=== PATIENT | male | born 1945 | race Caucasian/White ===

== ENCOUNTER 2020-02-10 17:06 | Outpatient (CLI) | payer MEDICARE, SELFPAY ==
--- NOTE | ~2020-02-10 | XR_ITS ---
EXAMINATION: XR hip BI wo pelvis DATE: 02/10/2020 17:43 INDICATION: Bilateral hip pain, left greater than right TECHNIQUE: Anteroposterior , frog leg and cross-table lateral views of the left and right hips were o btained. COMPARISON: 08/09/2018 FINDINGS: Normal alignment at both hips. No fracture or suspected avascular necrosis. Mild bilateral hip osteoa rthritis. A few phleboliths in the pelvis. IMPRESSION: 1. Mild bilateral hip osteoarthritis. No acute osseous abnormality. Reviewed, dictated and finalized at location A.
== END 2020-02-10 17:07 | disposition home or self-care (01) ==
PROVIDERS: PCP Internal Medicine; Visit Provider Internal Medicine
DX: M16.0 Bilateral primary osteoarthritis of hip (principal)
CPT/HCPCS: 73521

== ENCOUNTER 2020-08-21 10:51 | Emergency (ER) | payer MEDICARE, SELFPAY ==
[2020-08-21 11:07] VITALS: BP 124/82; PULSE 90; RESP 20; TEMP 37.9; O2SAT 100
--- NOTE | 2020-08-21 11:11 | ED.URI ---
HPI - URI/Sore Throat General Chief Complaint: Upper Respiratory Infection Stated Complaint: upper respiratory infection Time Seen by Provider: 08/21/20 11:10 Source: patient and RN notes reviewed Mode of arrival: ambulatory Limitations: no limitations History of Present Illness HPI Narrative: 74-year-old male presents with concern for 3-day history of sinus congestion, cough, body aches, postnasal drainage. Reports a coworker tested positive for Covid, he was exposed to the coworker approximately 12 days ago. He reports he was tested this morning at a community testing site, he does not know the results. He denies shortness of breath, loss of sense of taste or smell. Reports he has been taking Coricidin and Tylenol. MD elicited complaint: cough and nasal congestion Related Data Home Medications Medication Instructions Recorded Confirmed aspirin 81 mg tablet,delayed 81 mg PO DAILY 07/28/19 08/21/20 release multivitamin 1 tablet PO DAILY 07/28/19 08/13/20 Allergies Allergy/AdvReac Type Severity Reaction Status Date / Time Iodinated Contrast Media Allergy Mild unknown Verified 08/12/20 14:49 Review of Systems Review of Systems: Narrative: CONSTITUTIONAL: Denies malaise, chills, sweats, or fever. EYES: Denies visual changes, redness, or discharge. ENT: Reports rhinorrhea, congestion, postnasal drainage. Denies sinus pain, otalgia and sore throat. CARDIOVASCULAR: Denies chest pain, palpitations, or edema. RESPIRATORY: Reports cough. Denies dyspnea. GASTROINTESTINAL: Denies abdominal pain, nausea, vomiting, diarrhea SKIN: Denies rash or itching. MUSCULOSKELETAL: Reports myalgia. NEUROLOGIC: Denies headache. All systems reviewed & are unremarkable except as noted in HPI and below PMFSH Family History Family History Father Acute myocardial infarction, Onset Age: 62 Patient's father is Mother Patient's mother is Social History Social History Smoking status: Never smoker Second hand tobacco smoke exposure: No Smoking end date: 08/26/96 Alcohol intake: current Gender identity (if verbalized by the patient): Male Comments At time of signature, agree with nursing past medical, surgical, social and family history. There is no relevant family history pertinent to the presenting complaint Exam Narrative: Exam Narrative: GENERAL: Well-appearing, well-nourished, and in no acute distress. HEAD: Normocephalic EYES: PERRLA, conjunctivae clear ENT: Nares clear, turbinates erythematous, clear discharge. Mucous membranes moist. TM pearly nunez with dull light reflex bilaterally; no tragal tenderness. Oropharynx mildly erythematous without lesions. Tonsils not enlarged and without exudate, no drooling, no hoarseness, no trismus, uvula midline. NECK: Supple. No lymphadenopathy CHEST: Clear to auscultation, breath sounds equal. No wheezing, rhonchi, rales, or stridor. No respiratory distress, speaks in full sentences. HEART: Regular rate and rhythm. No murmur heard. SKIN: Warm, dry, no rash. NEURO: Alert and oriented x3. PSYCH: Normal mood and affect Course Course Emergency Course: Patient is aware of diagnosis, understands and agrees to treatment plan. Anticipatory guidance given. Patient agrees to follow-up as directed and is aware of reasons to seek care at the emergency department. Portions of this record may have been created with voice recognition software Vital Signs Vital signs: Vital Signs Temperature 100.2 F H 08/21/20 11:07 Pulse Rate 90 08/21/20 11:07 Respiratory Rate 08/21/20 11:07 Blood Pressure 124/82 08/21/20 11:07 Pulse Oximetry 100 08/21/20 11:07 Temperature 100.2 F H 08/21/20 11:07 Pulse Rate 90 08/21/20 11:07 Respiratory Rate 20 08/21/20 11:07 Blood Pressure 124/82 08/21/20 11:07 Pulse Oximetry 100
== END 2020-08-21 11:28 | disposition home or self-care (01) ==
PROVIDERS: Emergency Provider Nurse Practitioner; PCP Internal Medicine
DX: B34.9 Viral infection, unspecified (principal); Z79.82 Long term (current) use of aspirin
CPT/HCPCS: 99213; G0463

== ENCOUNTER 2022-06-07 14:37 | Outpatient (CLI) | payer MEDICARE, SELFPAY ==
--- NOTE | ~2022-06-07 | MR_ITS ---
EXAMINATION: MR lumbar spine wo con DATE: 06/07/2022 15:25 INDICATION: Low back pain. TECHNIQUE: Magnetic resonance imaging (MRI) of the lumbar spine was performed without intravenous con trast. Sequences included sagittal T2-weighted FSE, sagittal T2-weighted FS FSE, sagittal T1-weighted FSE, and axial T2-weighted FSE. COMPARISON: None FINDINGS: There is 6 degrees levocurvature of lumbar spine. There is 3 mm retrolisthesis of L4 on L5 and L5 on S1. There is mildly decreased disc height at L2-L3 and L3-L4 and severely decreased disc he ight at L4-L5 and L5-S1. The distal spinal cord signal intensity is normal. The conus medullaris is a t L1. The following disc levels are specifically discussed: L1-L2: The disc does not extend beyond the endplate margin. There is severe right and moderate left f acet joint osteoarthritis. There is mild bilateral neural foraminal stenosis. There is no central can al stenosis. L2-L3: The disc is bulging. There is severe bilateral facet joint osteoarthritis. There is mild bilat eral neural foraminal stenosis. There is mild central canal stenosis. L3-L4: The disc is bulging and has an annular fissure. There is moderate bilateral facet joint osteoa rthritis. There is mild bilateral neural foraminal stenosis. There is mild central canal stenosis. L4-L5: The disc is bulging and has an annular fissure. There is severe right and moderate left facet joint osteoarthritis. There is mild bilateral neural foraminal stenosis. There is mild central canal stenosis. L5-S1: The disc is bulging with superimposed central extrusion. There is moderate bilateral facet jeffrey nt osteoarthritis. There is mild bilateral neural foraminal stenosis. There is mild central canal ivana nosis. IMPRESSION: 1. Severe lower lumbar spondylosis. Reviewed, dictated and finalized at location A.
== END 2022-06-07 14:38 | disposition home or self-care (01) ==
PROVIDERS: PCP Internal Medicine; Visit Provider Orthopaedic Surgery
DX: R92.2 Inconclusive mammogram (principal); M47.896 Other spondylosis, lumbar region
CPT/HCPCS: 72148

== ENCOUNTER 2023-04-03 12:04 | Outpatient (CLI) | payer MEDICARE, SELFPAY ==
[2023-04-03 13:23] LABS: SARS-CoV-2 RNA PCR Positive (Negative)
== END 2023-04-03 12:05 | disposition home or self-care (01) ==
LOC: ANHLAB 12:05
PROVIDERS: PCP Internal Medicine; Visit Provider Internal Medicine
DX: U07.1 COVID-19 (principal)
CPT/HCPCS: 87635

== ENCOUNTER 2023-10-30 10:31 | Outpatient (CLI) | payer MEDICARE, SELFPAY ==
--- NOTE | ~2023-10-30 | XR_ITS ---
Right Shoulder Technique: AP and scapular Y views were obtained. Clinical History: Pain Findings: No fracture or dislocation is seen. Osseous alignment is anatomic. There is [id number] e AC joint degenerative change with suspected subacromial spur. Glenohumeral joint intact. Soft tissu es are unremarkable. Impression: Degenerative changes AC joint, as detailed above. Reviewed, dictated and finalized at location M. [employer] Impression: Degenerative changes AC joint, as detailed above.
== END 2023-10-30 10:32 ==
LOC: MICIMG 10:35
PROVIDERS: PCP Internal Medicine; Visit Provider Internal Medicine
DX: M19.011 Primary osteoarthritis, right shoulder (principal)
CPT/HCPCS: 73030